=== PATIENT | male | born 1990 | race Caucasian/White ===

== ENCOUNTER 2020-10-14 10:32 | Inpatient (IN) | payer OTHER, SELFPAY ==
[2020-10-14] VITALS (12 sets, daily range): BP systolic 127–179; BP diastolic 63–122; PULSE 58–75; RESP 12–18; TEMP 36.2–37; O2SAT 97–100; BMI 27.3; BMI 27.6
--- NOTE | 2020-10-14 | ECG_ITS ---
Test Reason : CHEST PAIN Blood Pressure : / mmHG Vent. Rate : 056 BPM Atrial Rate : 056 BPM P-R Int : 146 ms QRS Dur : 094 ms QT Int : 418 ms P-R-T Axes : 057 039 043 degrees QTc Int : 403 ms Sinus bradycardia with sinus arrhythmia Otherwise normal ECG No previous ECGs available Referred By: Generic ED Physician Electronically Signed By:LORI HAWK
--- NOTE | ~2020-10-14 | XR_ITS ---
EXAMINATION: XR CHEST CLINICAL INFORMATION: Chest pain COMPARISON: None TECHNIQUE: Frontal view of the chest was obtained. FINDINGS: No significant abnormality is noted involving the heart, lungs, mediastinum, bony thorax or soft tissues. XR/XR chest 1V IMPRESSION: Unremarkable chest examination.
--- NOTE | 2020-10-14 11:40 | ED.CHESTPAIN ---
HPI - Chest Pain General Chief Complaint: Chest Pain Stated Complaint: CHEST PAIN Time Seen by Provider: 10/14/20 11:38 History of Present Illness HPI narrative: Positive chest pain mid chest on the left side as well. Radiating to the arm. It was dull. Lasted for about an hour. There was no specific trigger. No fever no chills. No history of diabetes, hypertension, high cholesterol. Patient vapes. No history of DE. No family history of DE. Patient denies any recent travel history no history of blood clots. Not on blood thinners. No history of similar pain in the past. No shortness of breath. No diaphoresis associated with this. Patient is from home. Related Data Allergies Allergy/AdvReac Type Severity Reaction Status Date / Time aspirin Allergy Swelling Verified 10/14/20 10:43 Review of Systems Review of Systems: Constitutional: No Weight loss, No Fever, No Chills, No Night Sweats, No Fatigue, No Malaise ENT/Mouth: No Hearing loss, No Ear Pain, No Nasal Congestion, No Sinus Pain, No Hoarseness, No sore throat, No Rhinorrhea, No Swallowing Difficulty Eyes: No Eye Pain, No Swelling, No Redness, No Foreign Body, No Discharge, No Vision Changes Cardiovascular: Positive chest pain no shortness of breath no diaphoresis Respiratory: No Cough, No Sputum, No Wheezing, No Smoke Exposure, No Dyspnea Gastrointestinal: No Nausea, No Vomiting, No Diarrhea, No Constipation, No abdominal Pain, No Hematochezia, No Melena Genitourinary: no irregular bleeding, No Dysuria, No Urinary Frequency, No Hematuria, No Urinary Incontinence, No Urgency, No Flank Pain, No Urinary Flow Changes, No Hesitancy Musculoskeletal: No joint pain, No Myalgias, No Joint Swelling Skin: No Skin Lesions, No rash Neuro: No Weakness, No Numbness, No Paresthesias, No Loss of Consciousness, No Dizziness, No Headache Psych: No Anxiety/Panic, No Depression, No SI/HI/AH/VH, No Social Issues, Heme/Lymph: No Bruising, No Bleeding,No Lymphadenopathy Endocrine: No Polyuria, No Polydipsia, No Temperature Intolerance PMFSH Past Medical History Medical History Anxiety Depression Social History Social History Alcohol intake: current Alcohol intake frequency: a few times a week Smoked in Last 30 Days: Yes Use of substances other than those prescribed or required for medical reasons: No Advance Directives: Yes Advance Directives Information Provided: Yes Advance Directives on File: No Physical Exam Vital Signs: Vital Signs: Last Vital Signs Temp 97.1 F 10/14/20 10:40 Pulse 64 10/14/20 13:17 Resp 16 10/14/20 13:17 BP 143/95 H 10/14/20 13:17 Pulse Ox 99 10/14/20 13:17 Body Mass Index 27.3 Appearance: Alert. Oriented X3. No acute distress. Eyes: Pupils equal, round and reactive to light. ENT: Pharynx normal. Neck: Normal inspection. Neck supple. No lymph nodes noted. No crepitus CVS: Normal heart rate and rhythm. Pulses normal. Normal S1 and S2 Respiratory: No respiratory distress. Breath sounds normal. No Wheezing. No rales Abdomen: Soft and nontender. No rigidity. No distention. good BS x4 Skin: Skin warm and dry. Normal skin color. Normal skin turgor. Extremities: No lower extremity edema. Neurovascular intact to all extremities. No Lacerations. No Rash Neuro: Oriented X 3. No motor deficit. No sensory deficit. Moving all extermities. No slurred speech MDM - Chest Pain MDM Narrative Medical decision making narrative: Patient's EKG showed a sinus pattern heart rate was 60 NC cares QT within normal limits is no acute ST segment elevation noted. He is well-appearing the only risk factor being he vapes. Patient has no risk factors for PE as well. Chest x-ray is pending to rule out pneumonia pneumothorax. Will get 2 sets of cardiac enzyme is chest pain is less than 6 hours. Currently in stable condition Patient's cardiac enzyme in the 40s. A repeat EKG was done. It is essentially the same as previous. Heart rate was 60 sinus NC QRS QT within normal limits is no acute ST segment elevation noted. Patient's CRP minimally elevated at 0.6. Patient's CK is normal. Case discussed with cardiology. Wants patient to be admitted. Once an echo to be done. Case will be discussed with the hospitalist team for admission. Patient has no risk factors for PE. Chest x-ray showed no pneumonia no pneumothorax. Differential Diagnosis Differential diagnosis: Likely fracture of rib, pneumothorax, unstable angina pectoris, st elevation myocardial infarction, costochondritis and biliary colic Lab Data Attestation: I reviewed the patient's lab results. Result diagrams: 10/14/20 11:45 10/14/20 11:45 Labs: Lab Results 10/14/20 10/14/20 10/14/20 Range/Units 11:45 11:45 11:50 WBC 8.1 (4.8-10.8) X10*3/uL RBC 4.91 (4.60-5.80) X10*6/uL Hgb 15.0 (14.0-18.0) g/dl Hct 44.5 (42-52) % MCV 90.6 (80-98) fL MCH 30.5 (27.0-33.0) pg MCHC 33.7 (31.0-36.0) g/dl RDW 11.8 (11.0-16.0) % Plt Count 315 (160-400) X10*3/uL MPV 9.6 (9.4-12.4) fL Immature Gran % (Auto) 1.7 H (0.0-0.4) % Neut % (Auto) 65.2 (45-73) % Lymph % (Auto) 24.2 (20-40) % [place] % (Auto) 7.8 (2-11) % Eos % (Auto) 0.5 (0-4) % Baso % (Auto) 0.6 (0-2) % Lymph # (Auto) 2.0 (1.2-4.9) X10*3/uL [place] # (Auto) 0.6 (0.1-1.2) X10*3/uL Eos # (Auto) 0.0 (0.0-0.4) X10*3/uL Baso # (Auto) 0.1 (0.0-0.2) X10*3/uL Abs Immat Gran (auto) 0.14 H (0.00-0.03) X10*3/uL Absolute Neuts (auto) 5.3 (2.0-8.3) X10*3/uL Absolute Nucleated RBC 0.000 (0.0-0.012) X10*3/uL Nucleated RBC % (auto) 0.0 (0.0-0.2) /100WBC Sodium 138 (135-145) mmol/L Potassium 4.8 (3.3-5.1) mmol/L Chloride 103 (96-108) mmol/L Carbon Dioxide 28 (22-29) mmol/L Anion Gap 12 (12-20) BUN 16 (9-16) mg/dL Creatinine 1.17 (0.5-1.4) mg/dL Estim Creat Clear Calc 90.1 Estimated GFR > 60 Random Glucose 99 (60-115) mg/dL Calcium 10.0 (8.4-10.2) mg/dL Total Creatine Kinase 125 (38-174) U/L Troponin I High Sens 46.1 H* (<3.5-35.0) ng/L C-Reactive Protein 0.70 H (< or = 0.50) mg/dL Discharge Plan Discharge Clinical Impression: Chest pain Patient Disposition: Admitted As Inpatient
[2020-10-14 11:52] LABS: MANUAL DIFF FLAG NO
[2020-10-14 11:55] LABS: Basophils Absolute Auto 0.1 X10*3/uL (0.0-0.2); Basophils Percent Auto 0.6 % (0-2); Eosinophils Percent Auto 0.5 % (0-4); Hematocrit 44.5 % (42-52); Imm Gran Abs Auto 0.14 X10*3/uL (0.00-0.03); Imm Gran Pct Auto 1.7 % (0.0-0.4); Lymphocytes Percent Auto 24.2 % (20-40); Mean Corpuscular HGB Conc 33.7 g/dl (31.0-36.0); Mean Corpuscular Hemoglobin 30.5 pg (27.0-33.0); Mean Corpuscular Volume 90.6 fL (80-98); Mean Platelet Volume 9.6 fL (9.4-12.4); Monocytes Absolute Auto 0.6 X10*3/uL (0.1-1.2); Monocytes Percent Auto 7.8 % (2-11); Neutrophils Absolute Auto 5.3 X10*3/uL (2.0-8.3); Neutrophils Percent Auto 65.2 % (45-73); Platelet Count 315 X10*3/uL (160-400); Red Blood Count 4.91 X10*6/uL (4.60-5.80); Red Cell Distribution Width 11.8 % (11.0-16.0); White Blood Count 8.1 X10*3/uL (4.8-10.8)
--- NOTE | 2020-10-14 12:08 | PC.NURSE ---
Pt sitting up in bed looking around in no distress. pt states chest pain is still present and rates it a 2/10. Pt continues to be nervous and anxious. Pt ambulatory to the bathroom and back in without difficutly
[2020-10-14 12:18] LABS: Anion Gap 12 (12-20); Blood Urea Nitrogen 16 mg/dL (9-16); Carbon Dioxide 28 mmol/L (22-29); Chloride 103 mmol/L (96-108); Creatinine Clr Calc Pharmacy 90.1; Estimated Glomerular Filt Rate > 60; Glucose Random 99 mg/dL (60-115); Potassium 4.8 mmol/L (3.3-5.1); Sodium 138 mmol/L (135-145)
[2020-10-14 12:44] LABS: Troponin-I High Sensitivity 46.1 ng/L (<3.5-35.0)
--- NOTE | 2020-10-14 13:27 | ECG_ITS ---
Test Reason : REPEAT EKG Blood Pressure : / mmHG Vent. Rate : 061 BPM Atrial Rate : 061 BPM P-R Int : 144 ms QRS Dur : 088 ms QT Int : 402 ms P-R-T Axes : 062 059 063 degrees QTc Int : 404 ms Normal sinus rhythm with sinus arrhythmia Normal ECG When compared with ECG of 14-OCT-2020 10:57, No significant change was found Referred By: Elisa Perry Electronically Signed By:LORI HAWK
--- NOTE | 2020-10-14 14:00 | CA_ITS ---
Transthoracic Echocardiogram Patient (Last, First, Middle): RENE GARRIDO, Gender: Male Date of : 1990 Age: 30 Procedure Date: 10/14/2020 Procedure Type: Transthoracic Echocardiogram Location: ER Height: 172.72 cm Weight: 81.65 kg BSA: 1.95 m2 Heart Rate: bpm BP: 137 / 86 mmHg Wired Sweatband Cutter: Referring MD: Donaldo Obrien MD Symptoms: Elevated troponins Study Quality: Fair ECG Rhythm: Sinus Conclusions: - The left ventricular systolic function is normal. The visually estimated ejection fraction is between 60-65%. - The apex, apical anterior, apical inferior, and apical septum segments are hypokinetic. - No obvious valvular pathology seen on this study. - There is mild dilatation of the ascending aorta measuring 3.50 cm. Findings Procedure Information Contrast agent, definity, is being given per protocol without apparent complications. Left Ventricle Normal left ventricular cavity size. There is mildly increased left ventricular wall thickness. The left ventricular systolic function is normal. The visually estimated ejection fraction is between 60-65%. There is no evidence of regional wall motion abnormalities. Diastolic function is normal for age. Wall Motion Rest Echo Findings The apex, apical anterior, apical inferior, and apical septum segments are hypokinetic. Right Ventricle Normal right ventricular cavity size and systolic function. Atria Both atria are normal in size. Aortic Valve There is a normal trileaflet aortic valve. There is no aortic valve stenosis. There is no aortic valve regurgitation. Mitral Valve The mitral valve appears normal. There is trace mitral valve regurgitation. There is no mitral valve stenosis. Pulmonic Valve The pulmonic valve was not well visualized. Tricuspid Valve Normal tricuspid valve structure. There is trace tricuspid valve regurgitation. The pulmonary artery systolic pressure is normal. Great Vessels There is mild dilatation of the ascending aorta measuring 3.50 cm. Venous The inferior vena cava is normal in size and collapses greater than 50% with inspiration. Pericardium/Pleural There is no evidence of pericardial effusion. Prior Study Comparison No prior study available for comparison. Recommendations, Care & Conclusions No obvious valvular pathology seen on this study. Measurements 2D Linear Measurements IVSd: 1.15 0.6-0.9/0.6-1.0 cm LVIDd: 4.22 3.9-5.3/4.2-5.9 cm LVIDd Index: 2.16 2.4-3.2/2.2-3.1 cm/m2 LVIDs: 2.26 2.0-3.6 cm LVPWd: 1.05 0.7-1.1 cm Ao Root: 3.20 2.1-3.5 cm LA Diam: 3.20 2.7-3.8/3.0-4.0 cm LAIDs Index: 1.64 1.5-2.3 cm/m2 LV Mass: 197.04 67-162/88-224 g LV Mass Index: 101.04 43-95/49-115 g/m2 LVOT Diam: 2.20 3.0+(-)1.3 cm 2D Systolic Function EF 4C: 57.60 >55% EF 2C: 70.70 >55% EF BiP: 65.30 >55% Mitral Valve MV Pk E: 0.72 MV PK A: 0.47 MV Decel Time: 178.00 E/A: 1.50 E'Lateral: 15.70 E'Medial: 9.25 E/E' Med: 7.80 E/E' Lat: 4.60 PHT: 52.00 MVA PHT: 4.23 Decel [place]: 4.04 Aortic Valve AoV Pk Keegan: 1.01 AoV Mn Keegan: 0.64 AoV VTI: 0.23 AoV Pk Grad: 4.00 Aov Mn Grad: 2.00 MELVA Cont.VTI: 2.99 LVOT LVOT Pk Keegan: 0.81 LVOT Mn Keegan: 0.49 LVOT VTI: 0.18 LVOT Pk Grad: 3.00 LVOT Mn Grad: 1.00 LVOT Diam: 2.20 LVOT Area: 3.80 Diastolic Function MV Pk E: 0.72 MV Pk A: 0.47 E/A: 1.50 E'Medial: 9.25 E/E' Med: 7.80 E' Laterial: 15.70 E/E' Lat: 4.60 Right Ventricle TAPSE (mm): 2.04 Great Vessels Aorta Ao Root-2D: 3.20 2.0-3.7 cm Ao Asc: 3.50 2.1-3.4 cm Pulmonary Valve PV Pk Keegan: 0.97 Peak PV Grad: 4.00 Updated in Other Vendor System with Status of Final Donaldo Obrien MD electronically signed on 10/14/2020 4:19:38 PM with status of Final
[2020-10-14 14:52] LABS: COVID-19 Test Negative (Negative)
--- NOTE | 2020-10-14 15:11 | PHA.MEDREC ---
Pharmacy Consult ? Medication Reconciliation Pharmacy has completed the medication reconciliation.
[2020-10-14 15:27] LABS: Erythrocyte Sedimentation Rate 14 MM/HR (0-15)
[2020-10-14] MEDS: amLODIPine Besylate 2.5 MG TABLET PO (15:44)
[2020-10-14] MEDS: Clopidogrel Bisulfate 75 MG TABLET PO (15:46)
[2020-10-14] MEDS: Atorvastatin Calcium 80 MG TABLET PO (15:46)
[2020-10-14 16:15] LABS: INTERNATIONAL NORM RATIO 1.3 (0.9-1.1); Prothrombin Time 14.6 SEC (9.9-13.0)
[2020-10-14 16:17] LABS: PTT Heparin Drip 43.2 SEC (53-77.9)
--- NOTE | 2020-10-14 16:35 | PC.NURSE ---
Report given to IMCU nurse for room 485.
[2020-10-14] MEDS: Heparin Sodium,Porcine 5,000 UNIT/ML VIAL 4000 UNIT IVPUSH (16:57)
[2020-10-14] MEDS: Heparin Sodium,Porcine/1/2NS 25,000 UNIT/250 ML IV.SOLN 9.8 UNIT IVCONT (17:01)
[2020-10-14] MEDS: Clopidogrel Bisulfate 75 MG TABLET 225 MG PO (17:03)
--- NOTE | 2020-10-14 17:45 | PC.NURSE ---
Pt moved to room 485 via stretcher in no distress
--- NOTE | 2020-10-14 17:54 | HP_ITS ---
DATE OF SERVICE: 10/14/2020 CHIEF COMPLAINT: Chest pain. HISTORY OF PRESENT ILLNESS: This is a 30-year-old gentleman with past medical history significant for hypertension, previously was on antihypertensive medications, but that was subsequently discontinued since he was noted to have normal blood pressures. The patient today developed left precordial chest pain that was dull to sharp in intensity. He felt sweaty and had heavy breathing, symptoms started at 10 a.m. He also took some antacid medications since he fell symptoms related to heartburn, but he had no effect. Since symptoms persisted, he came to the emergency room. He denied any prior similar episodes of chest pain. He never had chest pain with exertion. He denies any stress. He has borderline high cholesterol. He vapes. In the emergency room, his EKG showed no acute ischemic changes. Troponin was 46.1, a repeat troponin is 474. The patient's chest pain resolved in the ER without any intervention. The patient has a history of tongue swelling as a child due to aspirin. The patient denies use of cocaine or other illicit drugs. His C-reactive protein is 0.70, ESR is 14. He is now being admitted to [facility] with diagnosis of [id number] MA. PAST MEDICAL HISTORY: Significant for hypertension, borderline high cholesterol. MEDICATIONS: He is not on any prescription drugs except for biotin 10,000 mcg daily. ALLERGIES: TO ASPIRIN THAT CAUSES TONGUE SWELLING. FAMILY HISTORY: There is no family history of premature coronary artery disease. Mother at bedside. Denies any family member to have coronary artery disease or diabetes. He is the only child. SOCIAL HISTORY: The patient drinks alcohol socially. 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 Denies illicit drug use. He does vaping. No use of marijuana. REVIEW OF SYSTEMS: REBEAMER: He denies headache, lightheadedness, or dizziness. CVS: His chest pain has now resolved. RESPIRATORY: He denies any recent bout of cough. No sputum production. GI: He denies any nausea or vomiting. No history of heartburn or acidity. : No urinary symptoms of urgency and frequency. LABORATORY DATA: Showed a WBC 8.1, hematocrit 44.5, and a platelet count of 315. Sodium 138, potassium 4.8, chloride 103, bicarb 28, creatinine 1.17. Troponin 46, bumped up to 474. PHYSICAL EXAMINATION: GENERAL: The patient is resting comfortably, in no acute distress. NECK: Supple. No JVD. LUNGS: Clear to auscultation bilaterally. No respiratory distress. HEART: Regular rate and rhythm. No murmur regurg or gallop. ABDOMEN: Soft, nontender. EXTREMITIES: No edema. NEUROLOGIC: Nonfocal. PSYCH: Appropriate affect. IMAGING STUDY: Chest x-ray showed no acute cardiopulmonary pathology. EKG showed sinus bradycardia with sinus arrhythmia, otherwise no acute ischemic changes. ASSESSMENT AND PLAN: 30-year-old gentleman with past medical history of hypertension and borderline high cholesterol, who presented to [facility] with 1 hour of [id number] pain that started while he was walking. Pain came on suddenly, associated with sweating and heavy breathing, symptoms resolved on its own within an hour, the ER workup showed elevated troponin, EKG with no acute ischemic changes, not suggestive of pericarditis. 1. Chest pain, likely [id number] elevation myocardial infarction. The patient will be admitted to intermediate care unit, will be treated with IV heparin, Plavix, Lipitor. We will avoid aspirin with history of tongue swelling as a child. Due to sinus bradycardia, we will hold off on beta-blockers. We will follow blood pressure closely. Check lipid profile. Obtain echocardiogram and Cardiology consultation. Drug toxicology screen has been sent. We will follow the report. Case discussed with the patient and his mother at bedside, informed them about the plan of treatment and they are agreeable to current treatment. MD YECENIA Manning/ELIUD / [phone]
[2020-10-14 18:22] LABS: Amphetamine Screen Urine Not Detected (Not Detect); Barbiturates, Urine Not Detected (Not Detect); Benzodiazepines Screen Urine Not Detected (Not Detect); Cannabinoid Screen Urine Not Detected (Not Detect); Cocaine Screen Urine Not Detected (Not Detect); Opiate Screen Urine Not Detected (Not Detect); Phencyclidine Screen Urine Not Detected (Not Detect)
[2020-10-14] MEDS: Nitroglycerin 2 % Oint 1 GM Packet 0.5 INCH TRANSDERMA (20:12)
[2020-10-14 23:28] LABS: PTT Heparin Drip 92.8 SEC (53-77.9)
--- NOTE | 2020-10-15 | ECG_ITS ---
Test Reason : NSTEMI Blood Pressure : / mmHG Vent. Rate : 054 BPM Atrial Rate : 054 BPM P-R Int : 152 ms QRS Dur : 090 ms QT Int : 452 ms P-R-T Axes : 049 056 084 degrees QTc Int : 428 ms Sinus bradycardia T wave abnormality, consider anterolateral ischemia Abnormal ECG When compared with ECG of 14-OCT-2020 13:36, T wave inversion more evident in Anterior leads Referred By: Lori Hawk Electronically Signed By:LORI HAWK
[2020-10-15 03:17] VITALS: BP 115/51; PULSE 63; RESP 18; TEMP 36.9; O2SAT 98
[2020-10-15] MEDS: Acetaminophen 325 MG TABLET 650 MG PO ×2 (06:16→12:07)
[2020-10-15 06:38] LABS: Hematocrit 44.3 % (42-52); Hemoglobin 14.8 g/dl (14.0-18.0); Mean Corpuscular HGB Conc 33.4 g/dl (31.0-36.0); Mean Corpuscular Hemoglobin 30.6 pg (27.0-33.0); Mean Corpuscular Volume 91.5 fL (80-98); Mean Platelet Volume 9.9 fL (9.4-12.4); Platelet Count 332 X10*3/uL (160-400); Red Blood Count 4.84 X10*6/uL (4.60-5.80); Red Cell Distribution Width 12.1 % (11.0-16.0); White Blood Count 10.1 X10*3/uL (4.8-10.8)
[2020-10-15 06:44] LABS: INTERNATIONAL NORM RATIO 1.3 (0.9-1.1); Prothrombin Time 14.7 SEC (9.9-13.0)
[2020-10-15 06:47] LABS: PTT Heparin Drip 62.7 SEC (53-77.9)
[2020-10-15 07:07] LABS: Cholesterol 181 mg/dL; HDL Cholesterol 33 mg/dL; LDL Cholesterol Calculated 106 mg/dl; Triglycerides 212 mg/dL
[2020-10-15 07:20] VITALS: BP 114/64; PULSE 72; RESP 16; TEMP 36.1; O2SAT 97
--- NOTE | 2020-10-15 09:05 | MHC.CM.PN ---
Male 30 DX NSTEMI He is independent. [facility] TRANSF[facility] to [facility] for Cardiac [place]. Pt will transport via ALS.
[2020-10-15 09:10] VITALS: BP 114/64; PULSE 72
[2020-10-15] MEDS: Nitroglycerin 2 % Oint 1 GM Packet 0.5 INCH TRANSDERMA (09:10)
[2020-10-15] MEDS: 0.9 % Sodium Chloride Flush 3 ML SYRINGE IVFLUSH (09:10)
[2020-10-15] MEDS: Atorvastatin Calcium 80 MG TABLET PO (09:10)
--- NOTE | 2020-10-15 09:55 | MHC.CM.PN ---
HCP documented placed on chart. Copy with tx packet and copies to Pt.
--- NOTE | 2020-10-15 10:24 | PM.CNCAR ---
History of Present Illness History of Present Illness Date of Service: 10/15/20 Consult reason: myocardial infarction Chief complaint: CHEST PAIN Narrative: This is a cardiology consultation regarding elevated troponins and chest pain. Patient does not have any known cardiac problems. He states that he was his usual state of health yesterday when all of a sudden developed left-sided chest discomfort that felt like a pressure. Also to discomfort in the left forearm as well. This happens today morning last for about 20-30 minutes. Then resolved by itself. He came to the ER an EKG was unremarkable but elevated troponins were noted in the he was admitted. He states that he was smoking scattered still a few months ago but now does weeping only. Otherwise no known cardiac issues in the past. He has a history of hypertension states he was on medications but then they were stopped as the blood pressure is within the normal range. Otherwise quite active without any major limitations on a daily basis. Father has hypertension. No premature CAD in near family. Extended family-great grandmother on maternal side has had cardiac issues. Review of Systems Review of Systems: Yes all other systems are reviewed and are negative Cardiovascular: Cardiovascular: Reports as per HPI, Reports no additional cardiovascular complaints, Denies acrocyanosis, Denies cool extremities, Denies painful fingertips, Reports chest pain, Reports chest pain at rest, Denies diaphoresis, Denies syncope, Denies irregular heart rhythm, Denies claudication, Denies leg edema, Denies lightheadedness, Denies palpitations and Denies dyspnea Respiratory: Respiratory: Denies dyspnea Neurologic: Denies syncope Endocrine: Endocrine: Denies palpitations PMF Past Medical History Medical History (Updated 10/15/20 @ 10:28 by Donaldo Obrien MD) Anxiety Aspirin allergy Depression Family History Pertinent family history: Father - hypertension Great grandmother on maternal with cardiac issues; CAD Social History Social History Household Members: Other Household Members Other:: Roommate Housing: Apartment Do you presently have visiting nurse or other home services: No Alcohol intake: current Alcohol intake frequency: a few times a week Patient Tobacco Use Status: Current everyday Tobacco user Years Smoked: 5 Smoked in Last 30 Days: Yes e-Cigarette/Vaping Use: Currently Using Frequency of e-Cigarette/Vaping Use: Daily Patient Interested in Nicotine Replacement: No Patient Given Instructions on How to Stop Smoking: Yes Date Education Initiated: 10/14/20 Second Hand Smoke Exposure: Yes Use of substances other than those prescribed or required for medical reasons: No Currently Displaying Signs/Symptoms of Drug Intoxication Withdrawal: No Have you been hit, kicked, punched, or otherwise hurt by someone within the past year? If so, by whom?: No Do you feel safe in your current relationship?: Yes Is there a partner from a previous relationship who is making you feel unsafe now?: No Are you made to feel afraid or neglected: No Spiritual Healthcare Practices: none per patient [facility] Practices: none per patient Cultural Healthcare Practices: none per patient Advance Directives: Yes Advance Directives Information Provided: Yes Advance Directives on File: No Advance Directives Date on File: 10/14/20 Do you have thoughts of harming others: None Do you have a plan to hurt others: No Plan Recently lost weight without trying: No Eating poorly because of decreased appetite: No Nutrition Risks: No Nutritional Risk Poor oral hygiene: No service: No Current occupational status: employed Meds Allergies Allergy/AdvReac Type Severity Reaction Status Date / Time aspirin Allergy Swelling Verified 10/14/20 10:43 Active Medications: Current Medications Generic Name Dose Route Start Last Admin Trade Name Freq PRN Reason Stop Dose Admin Acetaminophen 650 mg 10/14/20 15:22 10/15/20 06:16 Acetaminophen 325 Mg Tablet PO 650 mg Q6H PRN Administration Pain, Mild (Pain Scale 1-3) Atorvastatin Calcium 80 mg 10/14/20 15:30 10/15/20 09:10 Atorvastatin Calcium 80 Mg Tablet PO 80 mg DAILY ANDREW Administration Heparin Sodium (Porcine) 3,300 unit 10/14/20 15:28 Heparin Sodium,Porcine 5,000 Unit/Ml Vial 40 unit/kg (3300 unit) IVPUSH PROTOCOL BOLUS PRN 40 unit/kg - Heparin Protocol Protocol Heparin Sodium (Porcine) 6,500 unit 10/14/20 15:28 Heparin Sodium,Porcine 5,000 Unit/Ml Vial 80 unit/kg (6500 unit) IVPUSH PROTOCOL BOLUS PRN 80 unit/kg - Heparin Protocol Protocol Heparin Sodium/Sodium Chloride 25,000 unit in 250 mls @ 0 mls/hr 10/14/20 15:40 10/14/20 23:41 IVCONT 10 units/kg/hr .Q0M ANDREW 8.17 mls/hr Titration Protocol Per Protocol Magnesium Hydroxide 30 ml 10/14/20 15:22 Milk Of Magnesia 30 Ml Oral.Susp PO DAILY PRN Constipation Nitroglycerin 0.4 mg 10/14/20 15:59 Nitroglycerin 0.4 Mg Tab.Subl SUBLINGUAL Q5MX3 PRN Chest Pain Nitroglycerin 0.5 inch 10/14/20 20:00 10/15/20 09:10 Nitroglycerin 2 % Oint 1 Gm Packet TRANSDERMA 0.5 inch RQ6H WHILE AWAKE ANDREW Administration Ondansetron HCl 4 mg 10/14/20 15:22 Ondansetron Hcl 4 Mg/2 Ml Vial IVPUSH Q8H PRN Nausea and Vomiting Pharmacy Consult 1 each 10/14/20 13:50 Consult Rx Perform Med Rec MISCELLANE ONCE PRN Consult order Sodium Chloride 3 ml 10/14/20 16:00 10/15/20 09:10 0.9 % Sodium Chloride Flush 3 Ml Syringe IVFLUSH 3 ml QSHIFT [facility] Administration Home Medications Medication Instructions Recorded Confirmed Last Taken Type biotin 10,000 mcg capsule 10,000 mcg PO DAILY 10/14/20 10/14/20 10/13/20 History Physical Exam Vital Signs: Vital Signs: Last Vital Signs Temp 97 F 10/15/20 07:20 Pulse 72 10/15/20 09:10 Resp 16 10/15/20 07:20 BP 114/64 10/15/20 09:10 Pulse Ox 97 10/15/20 07:20 Body Mass Index 27.6 Const: General: cooperative and no acute distress HENMT: Other: Unremarkable Neck: Neck: Yes normal visual inspection Chest: Chest palpation & inspection: normal inspection of the chest Resp: Auscultation: clear to auscultation bilaterally, no crackles and no wheezes Cardio: Jugular venous distension: no JVD Palpation: normal PMI Heart sounds: S1 normal heart sound present, S2 normal heart sound present, no gallops, no murmurs and no rubs GI: Palpation (GI): Soft to palpation Back/Spine/Pelvis: Other: unremarkable Skin: General skin exam: no rashes or lesions noted Neuro: Cranial nerves: Yes Other cranial nerve findings present Extrem: General: Yes no clubbing, cyanosis or edema Psych: Mental Status: other Results Labs and Meds Result diagrams: 10/15/20 05:35 10/14/20 11:45 Lab results: Laboratory Results - last 24 hr 10/14/20 10/14/20 10/14/20 11:45 11:45 11:50 WBC 8.1 RBC 4.91 Hgb 15.0 Hct 44.5 MCV 90.6 MCH 30.5 MCHC 33.7 RDW 11.8 Plt Count 315 MPV 9.6 Immature Gran % (Auto) 1.7 H Neut % (Auto) 65.2 Lymph % (Auto) 24.2 Randall % (Auto) 7.8 Eos % (Auto) 0.5 Baso % (Auto) 0.6 Lymph # (Auto) 2.0 Randall # (Auto) 0.6 Eos # (Auto) 0.0 Baso # (Auto) 0.1 Abs Immat Gran (auto) 0.14 H Absolute Neuts (auto) 5.3 Absolute Nucleated RBC 0.000 Nucleated RBC % (auto) 0.0 ESR PT INR PTT (Heparin Protocol) Sodium 138 Potassium 4.8 Chloride 103 Carbon Dioxide 28 Anion Gap 12 BUN 16 Creatinine 1.17 Estim Creat Clear Calc 90.1 Estimated GFR > 60 Random Glucose 99 Calcium 10.0 Total Creatine Kinase 125 Troponin I High Sens 46.1 H* C-Reactive Protein 0.70 H Triglycerides Cholesterol LDL Cholesterol, Calc HDL Cholesterol Urine Opiates Screen Ur Barbiturates Screen Ur Phencyclidine Scrn Ur Amphetamines Screen U Benzodiazepines Scrn Urine Cocaine Screen U Marijuana (THC) Screen COVID-19 (PHILIP) COVID-19 Clin Com 10/14/20 10/14/20 10/14/20 14:29 14:29 14:29 WBC RBC Hgb Hct MCV MCH MCHC RDW Plt Count MPV Immature Gran % (Auto) Neut % (Auto) Lymph % (Auto) Randall % (Auto) Eos % (Auto) Baso % (Auto) Lymph # (Auto) Randall # (Auto) Eos # (Auto) Baso # (Auto) Abs Immat Gran (auto) Absolute Neuts (auto) Absolute Nucleated RBC Nucleated RBC % (auto) ESR 14 PT INR PTT (Heparin Protocol) Sodium Potassium Chloride Carbon Dioxide Anion Gap BUN Creatinine Estim Creat Clear Calc Estimated GFR Random Glucose Calcium Total Creatine Kinase Troponin I High Sens 474.0 H* D C-Reactive Protein Triglycerides Cholesterol LDL Cholesterol, Calc HDL Cholesterol Urine Opiates Screen Ur Barbiturates Screen Ur Phencyclidine Scrn Ur Amphetamines Screen U Benzodiazepines Scrn Urine Cocaine Screen U Marijuana (THC) Screen COVID-19 (PHILIP) Negative COVID-19 Clin Com See Note 10/14/20 10/14/20 10/14/20 15:56 17:47 23:06 WBC RBC Hgb Hct MCV MCH MCHC RDW Plt Count MPV Immature Gran % (Auto) Neut % (Auto) Lymph % (Auto) Randall % (Auto) Eos % (Auto) Baso % (Auto) Lymph # (Auto) Randall # (Auto) Eos # (Auto) Baso # (Auto) Abs Immat Gran (auto) Absolute Neuts (auto) Absolute Nucleated RBC Nucleated RBC % (auto) ESR PT 14.6 H INR 1.3 H PTT (Heparin Protocol) 43.2 L 92.8 H D Sodium Potassium Chloride Carbon Dioxide Anion Gap BUN Creatinine Estim Creat Clear Calc Estimated GFR Random Glucose Calcium Total Creatine Kinase Troponin I High Sens C-Reactive Protein Triglycerides Cholesterol LDL Cholesterol, Calc HDL Cholesterol Urine Opiates Screen Not Detected Ur Barbiturates Screen Not Detected Ur Phencyclidine Scrn Not Detected Ur Amphetamines Screen Not Detected U Benzodiazepines Scrn Not Detected Urine Cocaine Screen Not Detected U Marijuana (THC) Screen Not Detected COVID-19 (PHILIP) COVID-19 [facility] Com 10/15/20 10/15/20 10/15/20 05:35 05:35 05:35 WBC 10.1 RBC 4.84 Hgb 14.8 Hct 44.3 MCV 91.5 MCH 30.6 MCHC 33.4 RDW 12.1 Plt Count 332 MPV 9.9 Immature Gran % (Auto) Neut % (Auto) Lymph % (Auto) Randall % (Auto) Eos % (Auto) Baso % (Auto) Lymph # (Auto) Randall # (Auto) Eos # (Auto) Baso # (Auto) Abs Immat Gran (auto) Absolute Neuts (auto) Absolute Nucleated RBC 0.000 Nucleated RBC % (auto) 0.0 ESR PT 14.7 H INR 1.3 H PTT (Heparin Protocol) Sodium Potassium Chloride Carbon Dioxide Anion Gap BUN Creatinine Estim Creat Clear Calc Estimated GFR Random Glucose Calcium Total Creatine Kinase Troponin I High Sens C-Reactive Protein Triglycerides 212 Cholesterol 181 LDL Cholesterol, Calc 106 HDL Cholesterol 33 Urine Opiates Screen Ur Barbiturates Screen Ur Phencyclidine Scrn Ur Amphetamines Screen U Benzodiazepines Scrn Urine Cocaine Screen U Marijuana (THC) Screen COVID-19 (PHILIP) COVID-19 [facility] Com 10/15/20 05:35 WBC RBC Hgb Hct MCV MCH MCHC RDW Plt Count MPV Immature Gran % (Auto) Neut % (Auto) Lymph % (Auto) Randall % (Auto) Eos % (Auto) Baso % (Auto) Lymph # (Auto) Randall # (Auto) Eos # (Auto) Baso # (Auto) Abs Immat Gran (auto) Absolute Neuts (auto) Absolute Nucleated RBC Nucleated RBC % (auto) ESR PT INR PTT (Heparin Protocol) 62.7 D Sodium Potassium Chloride Carbon Dioxide Anion Gap BUN Creatinine Estim Creat Clear Calc Estimated GFR Random Glucose Calcium Total Creatine Kinase Troponin I High Sens C-Reactive Protein Triglycerides Cholesterol LDL Cholesterol, Calc HDL Cholesterol Urine Opiates Screen Ur Barbiturates Screen Ur Phencyclidine Scrn Ur Amphetamines Screen U Benzodiazepines Scrn Urine Cocaine Screen U Marijuana (THC) Screen COVID-19 (PHILIP) COVID-19 Clin Com ECG Interpretation: Initial EKG was unremarkable but repeat EKG today shows biphasic T-waves/inversion in anterior leads suggesting LAD ischemia. Imaging Radiologist's impression: Impressions Chest X-Ray 10/14/20 11:39 IMPRESSION: Unremarkable chest examination. Assessment and Plan (1) NSTEMI (non-ST elevated myocardial infarction): Status: Acute (2) Aspirin allergy: Status: Acute Symptoms of chest pain and left arm discomfort, abnormal EKG, elevated troponins suggest non ST elevation myocardial infarction. Initial troponin was 46. Repeat is 474-high sensitivity troponins. Today's set is pending. Echocardiogram also shows wall motion abnormality in the LAD territory. We will need to treat this as NSTEMI. Continue IV heparin drip. He was given Plavix as he is allergic to aspirin. The actual allergy was tongue swelling when he was 6 years old. Continue statins. Nitro patch. Plan for cardiac catheterization today. If he actually needs any intervention, then will need aspirin desensitization to be performed as well. Discussed with mother at the bedside in detail. Procedures Date of Service Date of Service: 10/15/20
[2020-10-15 10:29] LABS: Troponin-I High Sensitivity 1105.8 ng/L (<3.5-35.0)
[2020-10-15] MEDS: Clopidogrel Bisulfate 75 MG TABLET PO (11:04)
[2020-10-15 11:08] VITALS: BP 120/81; PULSE 60; RESP 18; TEMP 36.3; O2SAT 100
--- NOTE | 2020-10-15 11:14 | PM.DS ---
DS: Providers Provider Date of Service: 10/15/20 Date of admission: 10/14/20 15:22 Primary care physician: Unknown Physician Consults: 10/14/20 15:27 Consult to Cardiology Routine Consulting Provider: Donaldo Obrien Reason for consultation: nstemi Has provider been notified: Yes DS: Diagnosis Discharge Diagnosis (1) NSTEMI (non-ST elevated myocardial infarction): Status: Acute (2) Aspirin allergy: Status: Acute DS: Medications Discharge Medications Home Medications: Previous Rx's Medication Instructions Recorded acetaminophen 325 mg tablet 650 mg PO Q6H PRN #30 tab 10/15/20 atorvastatin 80 mg tablet 80 mg PO DAILY #30 tab 10/15/20 heparin (porcine) 25,000 unit/250 25,000 unit CONTINUOUS IV INFUSION 10/15/20 mL in 0.45 % sodium chloride IV .Q0M #1 ml soln heparin (porcine) 5,000 unit/mL 3,300 unit IVPUSH PROTOCOL BOLUS 10/15/20 injection solution PRN #1 ml heparin (porcine) 5,000 unit/mL 6,500 unit IVPUSH PROTOCOL BOLUS 10/15/20 injection solution PRN #1 ml magnesium hydroxide 400 mg/5 mL 30 ml PO DAILY PRN #30 ml 10/15/20 oral suspension (Milk of Magnesia) nitroglycerin 0.4 mg sublingual 0.4 mg SUBLINGUAL Q5MX3 PRN #30 tab 10/15/20 tablet (Nitrostat) nitroglycerin 2 % transdermal 0.5 inch TRANSDERMAL RQ6H WHILE 10/15/20 ointment (Nitro-Bid) AWAKE #1 g ondansetron HCl (PF) 4 mg/2 mL 4 mg IVPUSH Q8H PRN #3 ml 10/15/20 injection solution DS: Summary Hospital Course Hospital Course: History of presenting illness 30-year-old gentleman with past medical history significant for hypertension, previously was on antihypertensive medications, but that was subsequently discontinued since he was noted to have normal blood pressures. The patient today developed left precordial chest pain that was dull to sharp in intensity.? He felt sweaty and had heavy breathing, symptoms started at 10 a.m.? He also took some antacid medications since he fell symptoms related to heartburn, but he had no effect.? Since symptoms persisted, he came to the emergency room.? He denied any prior similar episodes of chest pain.? He never had chest pain with exertion.? He denies any stress.? He has borderline high cholesterol.? He vapes.? In the emergency room, his EKG showed no acute ischemic changes.? Troponin was 46.1, a repeat troponin is 474.? The patient's chest pain resolved in the ER without any intervention.? The patient has a history of tongue swelling as a child due to aspirin.? The patient denies use of cocaine or other illicit drugs.? His C-reactive protein is 0.70, ESR is 14. He is now being admitted to [facility] with diagnosis of [id number] [place]. ? PAST MEDICAL HISTORY:? Significant for hypertension, borderline high cholesterol. ? Hospital course 30-year-old gentleman with past medical history of hypertension and borderline high cholesterol presented with left anterior chest wall pain with radiation to left arm EKG showed no acute ischemic changes however noted to have elevated troponin patient diagnosed to have non ST elevation ND echocardiogram showed wall motion abnormality in the LAD territory patient was treated with IV heparin, Plavix due to aspirin allergy is statins and nitrates patient became chest pain free without any treatment in the emergency room, and during hospitalization did not have any recurrent chest discomfort ,patient is now being discharged to [facility] for cardiac catheterization drug toxicology screen was negative, tele monitor showed no arrhythmia, clinical examination shows no evidence of heart failure. Time Spent with Patient Time attestation: Total time spent providing and/or coordinating discharge services: Discharge coordination time: Greater than 30 minutes Quality: Stroke Does the patient have a stroke diagnosis?: No Physical Exam Vital Signs: Vital Signs: Last Vital Signs Temp 97.4 F 10/15/20 11:08 Pulse 60 10/15/20 11:08 Resp 18 10/15/20 11:08 BP 120/81 10/15/20 11:08 Pulse Ox 100 10/15/20 11:08 Body Mass Index 27.6 General patient resting comfortably in no acute distress. Neck no JVD. CVS regular rate rhythm, Respiratory lungs clear to auscultation, no respiratory distress, no wheeze, no rhonchi. Gastrointestinal abdomen soft, nontender, bowel sounds audible, no guarding , no rigidity. Extremities no clubbing cyanosis or edema. Neuro nonfocal Skin no rash DS: Data Data Completed and Pending Labs on day of discharge: Laboratory Results - last 24 hr 10/14/20 10/14/20 10/14/20 11:45 11:45 11:50 WBC 8.1 RBC 4.91 Hgb 15.0 Hct 44.5 MCV 90.6 MCH 30.5 MCHC 33.7 RDW 11.8 Plt Count 315 MPV 9.6 Immature Gran % (Auto) 1.7 H Neut % (Auto) 65.2 Lymph % (Auto) 24.2 [place] % (Auto) 7.8 Eos % (Auto) 0.5 Baso % (Auto) 0.6 Lymph # (Auto) 2.0 [place] # (Auto) 0.6 Eos # (Auto) 0.0 Baso # (Auto) 0.1 Abs Immat Gran (auto) 0.14 H Absolute Neuts (auto) 5.3 Absolute Nucleated RBC 0.000 Nucleated RBC % (auto) 0.0 ESR PT INR PTT (Heparin Protocol) Sodium 138 Potassium 4.8 Chloride 103 Carbon Dioxide 28 Anion Gap 12 BUN 16 Creatinine 1.17 Estim Creat Clear Calc 90.1 Estimated GFR > 60 Random Glucose 99 Calcium 10.0 Total Creatine Kinase 125 Troponin I High Sens 46.1 H* C-Reactive Protein 0.70 H Triglycerides Cholesterol LDL Cholesterol, Calc HDL Cholesterol Urine Opiates Screen Ur Barbiturates Screen Ur Phencyclidine Scrn Ur Amphetamines Screen U Benzodiazepines Scrn Urine Cocaine Screen U Marijuana (THC) Screen COVID-19 (PHILIP) COVID-19 [facility] Com 10/14/20 10/14/20 10/14/20 14:29 14:29 14:29 WBC RBC Hgb Hct MCV MCH MCHC RDW Plt Count MPV Immature Gran % (Auto) Neut % (Auto) Lymph % (Auto) [place] % (Auto) Eos % (Auto) Baso % (Auto) Lymph # (Auto) [place] # (Auto) Eos # (Auto) Baso # (Auto) Abs Immat Gran (auto) Absolute Neuts (auto) Absolute Nucleated RBC Nucleated RBC % (auto) ESR 14 PT INR PTT (Heparin Protocol) Sodium Potassium Chloride Carbon Dioxide Anion Gap BUN Creatinine Estim Creat Clear Calc Estimated GFR Random Glucose Calcium Total Creatine Kinase Troponin I High Sens 474.0 H* D C-Reactive Protein Triglycerides Cholesterol LDL Cholesterol, Calc HDL Cholesterol Urine Opiates Screen Ur Barbiturates Screen Ur Phencyclidine Scrn Ur Amphetamines Screen U Benzodiazepines Scrn Urine Cocaine Screen U Marijuana (THC) Screen COVID-19 (PHILIP) Negative COVID-19 Clin Com See Note 10/14/20 10/14/20 10/14/20 15:56 17:47 23:06 WBC RBC Hgb Hct MCV MCH MCHC RDW Plt Count MPV Immature Gran % (Auto) Neut % (Auto) Lymph % (Auto) [place] % (Auto) Eos % (Auto) Baso % (Auto) Lymph # (Auto) [place] # (Auto) Eos # (Auto) Baso # (Auto) Abs Immat Gran (auto) Absolute Neuts (auto) Absolute Nucleated RBC Nucleated RBC % (auto) ESR PT 14.6 H INR 1.3 H PTT (Heparin Protocol) 43.2 L 92.8 H D Sodium Potassium Chloride Carbon Dioxide Anion Gap BUN Creatinine Estim Creat Clear Calc Estimated GFR Random Glucose Calcium Total Creatine Kinase Troponin I High Sens C-Reactive Protein Triglycerides Cholesterol LDL Cholesterol, Calc HDL Cholesterol Urine Opiates Screen Not Detected Ur Barbiturates Screen Not Detected Ur Phencyclidine Scrn Not Detected Ur Amphetamines Screen Not Detected U Benzodiazepines Scrn Not Detected Urine Cocaine Screen Not Detected U Marijuana (THC) Screen Not Detected COVID-19 (PHILIP) COVID-19 Clin Com 10/15/20 10/15/20 10/15/20 05:35 05:35 05:35 WBC 10.1 RBC 4.84 Hgb 14.8 Hct 44.3 MCV 91.5 MCH 30.6 MCHC 33.4 RDW 12.1 Plt Count 332 MPV 9.9 Immature Gran % (Auto) Neut % (Auto) Lymph % (Auto) [place] % (Auto) Eos % (Auto) Baso % (Auto) Lymph # (Auto) [place] # (Auto) Eos # (Auto) Baso # (Auto) Abs Immat Gran (auto) Absolute Neuts (auto) Absolute Nucleated RBC 0.000 Nucleated RBC % (auto) 0.0 ESR PT 14.7 H INR 1.3 H PTT (Heparin Protocol) Sodium Potassium Chloride Carbon Dioxide Anion Gap BUN Creatinine Estim Creat Clear Calc Estimated GFR Random Glucose Calcium Total Creatine Kinase Troponin I High Sens C-Reactive Protein Triglycerides 212 Cholesterol 181 LDL Cholesterol, Calc 106 HDL Cholesterol 33 Urine Opiates Screen Ur Barbiturates Screen Ur Phencyclidine Scrn Ur Amphetamines Screen U Benzodiazepines Scrn Urine Cocaine Screen U Marijuana (THC) Screen COVID-19 (PHILIP) COVID-19 [facility] Com 10/15/20 10/15/20 05:35 05:35 WBC RBC Hgb Hct MCV MCH MCHC RDW Plt Count MPV Immature Gran % (Auto) Neut % (Auto) Lymph % (Auto) [place] % (Auto) Eos % (Auto) Baso % (Auto) Lymph # (Auto) [place] # (Auto) Eos # (Auto) Baso # (Auto) Abs Immat Gran (auto) Absolute Neuts (auto) Absolute Nucleated RBC Nucleated RBC % (auto) ESR PT INR PTT (Heparin Protocol) 62.7 D Sodium Potassium Chloride Carbon Dioxide Anion Gap BUN Creatinine Estim Creat Clear Calc Estimated GFR Random Glucose Calcium Total Creatine Kinase Troponin I High Sens 1105.8 H* D C-Reactive Protein Triglycerides Cholesterol LDL Cholesterol, Calc HDL Cholesterol Urine Opiates Screen Ur Barbiturates Screen Ur Phencyclidine Scrn Ur Amphetamines Screen U Benzodiazepines Scrn Urine Cocaine Screen U Marijuana (THC) Screen COVID-19 (PHILIP) COVID-19 Clin Com Discharge Plan Discharge Patient Disposition: [facility] Discharge Diagnosis: Non ST-elevation ND Referrals: [facility] [Outside] - 1 Week Vanda Ann MD [Physician] - 1 Week Discharge Medications: New atorvastatin 80 mg Tablet 80 mg PO DAILY Qty: 30 RF: 0 acetaminophen 325 mg Tablet 650 mg PO Q6H PRN (Reason: Pain, Mild (Pain Scale 1-3)) Qty: 30 RF: 0 magnesium hydroxide [Milk of Magnesia] 400 mg/5 mL Suspension 30 ml PO DAILY PRN (Reason: Constipation) Qty: 30 RF: 0 nitroglycerin [Nitrostat] 0.4 mg Tablet, Sublingual 0.4 mg sublingual Q5MX3 PRN (Reason: Chest Pain) Qty: 30 RF: 0 Nitro-Bid 2 % Ointment 0.5 inch transdermal RQ6H WHILE AWAKE Qty: 1 RF: 0 heparin (porcine) 5,000 unit/mL Solution 3,300 unit IVPUSH PROTOCOL BOLUS PRN (Reason: 40 Unit/Kg - Heparin Protocol) Qty: 1 RF: 0 heparin (porcine) 5,000 unit/mL Solution 6,500 unit IVPUSH PROTOCOL BOLUS PRN (Reason: 80 Unit/Kg - Heparin Protocol) Qty: 1 RF: 0 heparin(porcine) in 0.45% NaCl 25,000 unit/250 mL Parenteral Solution 25,000 unit continuous IV infusion .Q0M Qty: 1 RF: 0 ondansetron HCl (PF) 4 mg/2 mL Solution 4 mg IVPUSH Q8H PRN (Reason: Nausea And Vomiting) Qty: 3 RF: 0 Discontinued biotin 10,000 mcg Capsule 10,000 mcg PO DAILY RF: 0 Discharge Orders: Discharge Order (Routine); Ordered 10/15/20 Ordered By: Rox Downs Diet: low fat, low cholesterol Activity on Discharge: bed rest Stand Alone Forms: Patient Portal Discharge page Care Plan Goals: Transferred to [facility] for cardiac catheterization Health Concerns: Non ST-elevation ND need close cardiology follow-up Plan of Treatment: Close outpatient follow-up with primary care physician and Cardiology Assessment: As above
--- NOTE | 2020-10-15 12:08 | PC.NURSE ---
report called to M% RN. informed her that PTT needs to be drawn when he arrives. (therapeutic at 0600) denies CP at this time
== END 2020-10-15 12:08 | disposition short-term general hospital (02) | DRG 282 ==
LOC: HO.ED 13:53 → HO.EDOVER 15:52 → HO.IMC 16:12
PROVIDERS: Admitting Provider Hospitalist; Emergency Provider Emergency Medicine Emergency Medical Services; PCP Pediatrics; Visit Provider Hospitalist
DX: I21.4 Non-ST elevation (NSTEMI) myocardial infarction (principal); F17.210 Nicotine dependence, cigarettes, uncomplicated; Z71.6 Tobacco abuse counseling; I10 Essential (primary) hypertension; E78.00 Pure hypercholesterolemia, unspecified; Z20.822 Contact with and (suspected) exposure to COVID-19; Z88.6 Allergy status to analgesic agent; Z79.899 Other long term (current) drug therapy
CPT/HCPCS: 36415; 71045; 80048; 80061; 80307; 82550; 84484; 85025; 85027; 85610; 85652; 85730; 86140; 87635; 93005; 93306; 99285; Q9957

== ENCOUNTER → 2020-11-17 08:41 | Outpatient (BNVA) | payer OTHER, SELFPAY | PROVIDERS: PCP Pediatrics; Referring Provider Pediatrics; Visit Provider Internal Medicine | DX: I25.10 Atherosclerotic heart disease of native coronary artery without angina pectoris (principal); I21.4 Non-ST elevation (NSTEMI) myocardial infarction; Z88.8 Allergy status to other drugs, medicaments and biological substances | CPT/HCPCS: 93005 ==

== ENCOUNTER → 2020-12-18 13:56 | Outpatient (REF) | payer OTHER, SELFPAY ==
--- NOTE | 2020-12-18 13:59 | CA_ITS ---
Transthoracic Echocardiogram Patient (Last, First, Middle): Kenny Cole, Gender: Male Date of : 1990 Age: 30 Procedure Date: 12/18/2020 Procedure Type: Transthoracic Echocardiogram Location: OP Height: 172.72 cm Weight: 81.65 kg BSA: 1.95 m2 Heart Rate: bpm BP: 118 / 56 mmHg Apple Thinner: Referring MD: Donaldo Obrien MD Symptoms: I25.10 - Atherosclerotic heart disease of [place] coronary... Study Quality: Good ECG Rhythm: Sinus Conclusions: - The left ventricular systolic function is normal. The visually estimated ejection fraction is between 55-60%. - The basal inferior segment is hypokinetic. - No obvious valvular pathology seen on this study. Findings Left Ventricle Normal left ventricular cavity size. There is normal left ventricular wall thickness. The left ventricular systolic function is normal. The visually estimated ejection fraction is between 55-60%. Diastolic function is normal for age. Wall Motion Rest Echo Findings The basal inferior segment is hypokinetic. Right Ventricle Normal right ventricular cavity size and systolic function. TAPSE 1.8cm. Atria Both atria are normal in size. Aortic Valve There is a normal trileaflet aortic valve. There is no aortic valve stenosis. There is no aortic valve regurgitation. Mitral Valve The mitral valve appears normal. There is trace mitral valve regurgitation. There is no mitral valve stenosis. Pulmonic Valve The pulmonic valve was not well visualized. Tricuspid Valve Normal tricuspid valve structure. There is trace tricuspid valve regurgitation. The pulmonary artery systolic pressure is normal. Great Vessels The aortic annulus, sinuses of valsalva, and asc aorta are normal in size. Venous The inferior vena cava is normal in size and collapses greater than 50% with inspiration. Pericardium/Pleural There is no evidence of pericardial effusion. Prior Study Comparison Changes noted compared to prior study dated: 10/14/2020. Apical wall motion abnormality improved. Basal inferior abnormality previously present. Recommendations, Care & Conclusions No obvious valvular pathology seen on this study. Measurements 2D Linear Measurements IVSd: 0.98 0.6-0.9/0.6-1.0 cm LVIDd: 4.57 3.9-5.3/4.2-5.9 cm LVIDd Index: 2.34 2.4-3.2/2.2-3.1 cm/m2 LVIDs: 2.95 2.0-3.6 cm LVPWd: 1.00 0.7-1.1 cm Ao Root: 3.00 2.1-3.5 cm LA Diam: 3.20 2.7-3.8/3.0-4.0 cm LAIDs Index: 1.64 1.5-2.3 cm/m2 LV Mass: 192.72 67-162/88-224 g LV Mass Index: 98.83 43-95/49-115 g/m2 LVOT Diam: 2.10 3.0+(-)1.3 cm 2D Systolic Function EF 4C: 54.70 >55% EF 2C: 55.00 >55% EF BiP: 54.20 >55% Mitral Valve MV Pk E: 0.84 MV PK A: 0.35 MV Decel Time: 153.00 E/A: 2.40 E'Lateral: 16.90 E'Medial: 7.51 E/E' Med: 11.20 E/E' Lat: 5.00 PHT: 45.00 MVA PHT: 4.89 Decel [place]: 5.49 Aortic Valve AoV Pk Keegan: 0.95 AoV Mn Keegan: 0.66 AoV VTI: 0.27 AoV Pk Grad: 4.00 Aov Mn Grad: 2.00 MELVA Cont.VTI: 2.47 LVOT LVOT Pk Keegan: 0.84 LVOT Mn Keegan: 0.56 LVOT VTI: 0.19 LVOT Pk Grad: 3.00 LVOT Mn Grad: 1.00 LVOT Diam: 2.10 LVOT Area: 3.46 Diastolic Function MV Pk E: 0.84 MV Pk A: 0.35 E/A: 2.40 E'Medial: 7.51 E/E' Med: 11.20 E' Laterial: 16.90 E/E' Lat: 5.00 Right Ventricle TAPSE (mm): 18.00 TVS' Keegan: 7.20 Tricuspid Valve TR Pk Keegan: 2.30 TR Pk Grad: 21.00 Great Vessels Aorta Ao Root-2D: 3.00 2.0-3.7 cm Ao Asc: 3.00 2.1-3.4 cm Pulmonary Valve PV Pk Keegan: 0.98 Peak PV Grad: 4.00 Updated in Other Vendor System with Status of Final Donaldo Obrien MD electronically signed on 12/19/2020 11:43:25 AM with status of Final
== END ==
LOC: HO.CARD 13:56
PROVIDERS: PCP Pediatrics; Visit Provider Internal Medicine
DX: I21.4 Non-ST elevation (NSTEMI) myocardial infarction (principal); I25.10 Atherosclerotic heart disease of native coronary artery without angina pectoris
CPT/HCPCS: 93306

== ENCOUNTER → 2021-02-16 12:56 | Outpatient (BNVA) | payer OTHER, SELFPAY | PROVIDERS: PCP Pediatrics; Referring Provider Pediatrics; Visit Provider Internal Medicine ==

== ENCOUNTER 2021-08-03 11:06 | Outpatient (REF) | payer OTHER, SELFPAY ==
[2021-08-03 12:39] LABS: Alanine Aminotransferase 30 U/L (0-40); Albumin Level 4.6 g/dL (3.5-5.0); Alkaline Phosphatase 70 U/L (39-117); Aspartate Amino Transferase 21 U/L (5-37); Bilirubin Direct 0.2 mg/dL (0.0-0.5); Bilirubin Total 0.5 mg/dL (0.0-1.0); Cholesterol 109 mg/dL; HDL Cholesterol 40 mg/dL; LDL Cholesterol Calculated 57 mg/dl; Total Protein 7.5 g/dL (6.5-8.0); Triglycerides 64 mg/dL
[2021-08-05 14:50] LABS: CRP High Sensitivity 1.2 mg/L
[2021-08-08 07:28] LABS: Lipoprotein A 196 nmol/L (<75)
== END 2021-08-03 11:07 | disposition home or self-care (01) ==
LOC: HO.LAB 11:06
PROVIDERS: PCP Pediatrics; Referring Provider Pediatrics; Visit Provider Internal Medicine
DX: I25.10 Atherosclerotic heart disease of native coronary artery without angina pectoris (principal); I21.4 Non-ST elevation (NSTEMI) myocardial infarction; Z88.8 Allergy status to other drugs, medicaments and biological substances; Z95.1 Presence of aortocoronary bypass graft
CPT/HCPCS: 36415; 80061; 80076; 83695; 86141

== ENCOUNTER → 2022-02-02 09:00 | Outpatient (BNVA) | payer OTHER, SELFPAY | PROVIDERS: PCP Pediatrics; Referring Provider Pediatrics; Visit Provider Internal Medicine | DX: I25.10 Atherosclerotic heart disease of native coronary artery without angina pectoris (principal); R00.1 Bradycardia, unspecified; Z95.1 Presence of aortocoronary bypass graft; Z98.890 Other specified postprocedural states | CPT/HCPCS: 93005 ==

== ENCOUNTER 2023-02-15 08:58 | Outpatient (AMB) | payer OTHER, SELFPAY ==
--- NOTE | 2023-02-15 09:00 | A.OFFVIS_ITS ---
Intake Vital Signs 02/15/23 09:02 Height 5 ft 8 in Weight 199 lb 11.821 oz BMI 30.4 BP 126/90 H Blood Pressure Location Lt brachial Position Sitting Pulse 55 Intake Visit Reasons: 1 year follow up Intake Note: 1 year follow up w. EKG Supervisor Sleeping Bag Department Required: No Accompanied by: Self / Same As Patient Allergies aspirin Allergy (Verified 02/15/23 09:04) Swelling Medication List - Last Reconciled 02/15/23 by Donaldo Obrien MD atorvastatin 80 mg PO DAILY clopidogrel 75 mg PO DAILY emtricitabine-tenofovir (TDF) 200-300 mg 1 tab PO DAILY escitalopram oxalate 10 mg PO DAILY ezetimibe 10 mg PO DAILY hydroxyzine HCl 25 mg PO BEDTIME metoprolol tartrate 50 mg PO BID HPI HPI Comments History of Present Illness Details Kenny returns regarding coronary disease. In 2020, he was admitted for chest pressure and had EKG changes in the LAD territory as well as elevated troponins and wall motion findings on the echocardiogram. Cardiac catheterization showed left main as well as LAD stenosis. Following this, underwent bypass surgery and he recovered well without any new symptoms. Prior to this, had family history of premature coronary disease in father's uncle but not in the immediate next of kin. There was also history of smoking/vaping. Over the last couple of years, he has been doing good. No cardiac symptoms whatsoever. He visited [facility] for 2nd opinion and had a visit with own tower erector and a 2nd tele visit with a different tower erector and apparently there were no new changes. He is on the same medications as before. [facility] Medical History (Updated 11/17/20 @ 09:12 by Donaldo Obrien MD) Aspirin allergy Depression Anxiety Surgical History History of coronary artery bypass graft x 3 (~10/19/20) History of cardiac catheterization (~10/15/20) Family History Paternal Uncle No problems noted. Father HTN (hypertension) Mother No problems noted. Social History Household Members: Other Household Members Other:: Roommate Housing: Apartment Do you presently have visiting nurse or other home services: No Alcohol intake: current Alcohol intake frequency: a few times a week Patient Tobacco Use Status: Former Tobacco user Quit Date: 10/14/20 Years Smoked: 5 e-Cigarette/Vaping Use: Currently Using Second Hand Smoke Exposure: Yes Advance Directives Date on File: 10/14/20 service: No Current occupational status: employed Review of Systems Const Denies weakness ENT Denies dizziness Card Denies chest pain, Denies chest pain with activity, Denies syncope, Denies rapid heart rate, Denies pedal edema, Denies edema, Denies leg edema, Denies lightheadedness, Denies palpitations, Denies dyspnea, Denies dyspnea on exertion and Denies orthopnea Resp Denies cough, Denies dyspnea and Denies dyspnea on exertion GI Denies hematochezia and Denies change in stool character Musc Denies abnormal gait, Denies muscle cramps, Denies muscle weakness, Denies numbness, Denies radiating pain into limb and Denies tingling Neuro Denies abnormal gait, Denies dizziness, Denies syncope, Denies numbness, Denies tingling and Denies weakness Endo Denies palpitations Physical Exam Vital Signs: Last Vital Signs Pulse 55 02/15/23 09:02 BP 126/90 H 02/15/23 09:02 BMI result Body Mass Index 30.4 Const General: comfortable and no acute distress Orientation/consciousness: patient oriented x3 HEENT Other: Unremarkable Head: Yes normal to inspection Neck Neck: Yes normal visual inspection Chest Chest palpation & inspection: normal inspection of the chest Resp Auscultation: clear to auscultation bilaterally Cardio Palpation: normal PMI Heart sounds: S1 normal heart sound present, S2 normal heart sound present, no gallops, no murmurs and no rubs GI Palpation (GI): Soft to palpation Back/Spine/Pelvis Other: unremarkable Skin General skin exam: no rashes or lesions noted Neuro General: patient oriented x3 Extrem General: Yes normal to inspection Psych Mental Status: mental status grossly normal Office Procedures EKG Details: EKG with sinus bradycardia 55/Min; no significant ST-T changes and otherwise unremarkable[place] [id number], Complete Assessment & Plan Assessment & Plan (1) Atherosclerotic cardiovascular disease: Code(s): I25.10 - Atherosclerotic heart disease of [place] coronary artery without angina pectoris (2) Status post coronary artery bypass graft: Code(s): Z95.1 - Presence of aortocoronary bypass graft (3) Aspirin allergy: Code(s): Z88.8 - Allergy status to other drugs, medicaments and biological substances Plan Continue Plavix as he is allergic to aspirin. Continue beta-blockers, high-dose statins, Zetia. Most recent labs-LDL 43 mg/dL; triglycerides 51 mg/dL. Diastolic blood pressure is slightly high today. Advised him to do some home readings. Will request records from [facility]. Follow-up in 1 year. In the interim, call with concerns. Coding Level of Care Code Est Pt Level 3 (46876) Diagnoses Atherosclerotic cardiovascular disease I25.10 Status post coronary artery bypass graft Z95.1 Aspirin allergy Z88.8 CPT Codes EKG - CPT: 61530-[id number], Complete ([id number])
[2023-02-15 09:02] VITALS: BP 126/90; PULSE 55; BMI 30.4
== END 2023-02-15 09:24 | disposition home or self-care (01) ==
PROVIDERS: Visit Provider Internal Medicine
DX: I25.10 Atherosclerotic heart disease of native coronary artery without angina pectoris (principal); Z95.1 Presence of aortocoronary bypass graft; Z88.8 Allergy status to other drugs, medicaments and biological substances
CPT/HCPCS: 93010; 99213

== ENCOUNTER → 2023-02-15 08:58 | Outpatient (BNVA) | payer OTHER, SELFPAY | PROVIDERS: Visit Provider Internal Medicine | DX: Z95.1 Presence of aortocoronary bypass graft (principal); Z88.8 Allergy status to other drugs, medicaments and biological substances | CPT/HCPCS: 93005 ==

== ENCOUNTER 2024-02-06 10:34 | Outpatient (AMB) | payer OTHER, SELFPAY ==
[2024-02-06 10:36] VITALS: BP 120/60; PULSE 53
--- NOTE | 2024-02-06 10:36 | MHC.OFFVIS ---
Vital Signs 02/06/24 10:36 Height 5 ft 8 in BMI Reason not done Patient refused/unable BP 120/60 Blood Pressure Location Lt brachial Position Sitting Pulse 53 Pulse Source Monitor Intake Visit Reasons: 1 yr f/up Allergies aspirin Allergy (Verified 02/15/23 09:04) Swelling Medication List - Last Reconciled 02/06/24 by Donaldo Obrien MD atorvastatin 80 mg PO DAILY clopidogrel 75 mg PO DAILY emtricitabine-tenofovir (TDF) 200-300 mg 1 tab PO DAILY escitalopram oxalate 10 mg PO DAILY ezetimibe 10 mg PO DAILY metoprolol tartrate 50 mg PO BID 90 days HPI Comments Details: Kenny returns regarding coronary disease. In 2020, he was admitted for chest pressure and had EKG changes in the LAD territory as well as elevated troponins and wall motion findings on the echocardiogram. Cardiac catheterization showed left main as well as LAD stenosis. Following this, underwent bypass surgery and he recovered well without any new symptoms. Prior to this, had family history of premature coronary disease in father's uncle but not in the immediate next of kin. There was also history of smoking/vaping. Post bypass, he is generally doing good. No complaints like angina or shortness of breath or in fact anything cardiac sounding. He also visited [facility] for 2nd opinion and a 2nd tele visit with a different therapist physical and apparently there were no new changes. He is on the same medications as before. Since last seen, no new issues. [facility] Medical History (Updated 11/17/20 @ 09:12 by Donaldo Obrien MD) Aspirin allergy Depression Anxiety Surgical History History of coronary artery bypass graft x 3 (~10/19/20) History of cardiac catheterization (~10/15/20) Family History Paternal Uncle No problems noted. Father HTN (hypertension) Mother No problems noted. Social History Household Members: Other Household Members Other:: Roommate Housing: Apartment Do you presently have visiting nurse or other home services: No Alcohol intake: current Alcohol intake frequency: a few times a week Patient Tobacco Use Status: Former Tobacco user Years Smoked: 5 e-Cigarette/Vaping Use: Currently Using Second Hand Smoke Exposure: Yes Advance Directives Date on File: 10/14/20 service: No Current occupational status: employed Review of Systems Const Denies weakness ENT Denies dizziness Card Denies chest pain, Denies chest pain with activity, Denies syncope, Denies rapid heart rate, Denies pedal edema, Denies edema, Denies leg edema, Denies lightheadedness, Denies palpitations, Denies dyspnea, Denies dyspnea on exertion and Denies orthopnea Resp Denies cough, Denies dyspnea and Denies dyspnea on exertion GI Denies hematochezia and Denies change in stool character Musc Denies abnormal gait, Denies muscle cramps, Denies muscle weakness, Denies numbness, Denies radiating pain into limb and Denies tingling Neuro Denies abnormal gait, Denies dizziness, Denies syncope, Denies numbness, Denies tingling and Denies weakness Endo Denies palpitations Physical Exam Vital Signs: Last Vital Signs Pulse 53 02/06/24 10:36 BP 120/60 02/06/24 10:36 Const General: comfortable and no acute distress Orientation/consciousness: patient oriented x3 HEENT Other: Unremarkable Head: Yes normal to inspection Neck Neck: Yes normal visual inspection Chest Chest palpation & inspection: normal inspection of the chest Resp Auscultation: clear to auscultation bilaterally Cardio Palpation: normal PMI Heart sounds: S1 normal heart sound present, S2 normal heart sound present, no gallops, no murmurs and no rubs GI Palpation (GI): Soft to palpation Back/Spine/Pelvis Other: unremarkable Skin General skin exam: no rashes or lesions noted Neuro General: patient oriented x3 Extrem General: Yes normal to inspection Psych Mental Status: mental status grossly normal Office Procedures EKG Details: EKG with underlying sinus bradycardia at 53/Min; subtle T inversion in lead 1/aVL and seen before; [place]. [id number], Complete Assessment & Plan Assessment & Plan (1) Atherosclerotic cardiovascular disease: Code(s): I25.10 - Atherosclerotic heart disease of [place] coronary artery without angina pectoris Category: Medical (2) Status post coronary artery bypass graft: Code(s): Z95.1 - Presence of aortocoronary bypass graft Category: Surgical (3) Aspirin allergy: Code(s): Z88.8 - Allergy status to other drugs, medicaments and biological substances Category: Medical Plan Overall, remains stable post bypass surgery. Continue Plavix as he is allergic to aspirin. Continue beta-blockers, statins, Zetia. Last cholesterol levels from 2022-LDL 43 mg/dL; triglycerides 51 mg/dL. Blood pressure seems stable. We will plan on exercise stress perfusion imaging study about 5 years from time of bypass. If any interim concerns, advised to contact us. We will see him back in 1 year. Coding Level of Care Code Est Pt Level 3 (66979) Diagnoses Atherosclerotic cardiovascular disease I25.10 Status post coronary artery bypass graft Z95.1 Aspirin allergy Z88.8 CPT Codes EKG - CPT: 04923-[id number], Complete ([id number])
== END 2024-02-06 11:10 | disposition home or self-care (01) ==
PROVIDERS: PCP Pediatrics; Visit Provider Internal Medicine
DX: I25.10 Atherosclerotic heart disease of native coronary artery without angina pectoris (principal); Z95.1 Presence of aortocoronary bypass graft; Z88.8 Allergy status to other drugs, medicaments and biological substances
CPT/HCPCS: 93010; 99213

== ENCOUNTER → 2024-02-06 10:34 | Outpatient (BNVA) | payer OTHER, SELFPAY | PROVIDERS: PCP Pediatrics; Visit Provider Internal Medicine | DX: I25.10 Atherosclerotic heart disease of native coronary artery without angina pectoris (principal); Z95.1 Presence of aortocoronary bypass graft; Z79.02 Long term (current) use of antithrombotics/antiplatelets; Z79.899 Other long term (current) drug therapy; Z88.8 Allergy status to other drugs, medicaments and biological substances | CPT/HCPCS: 93005 ==

== ENCOUNTER 2025-02-10 08:46 | Outpatient (AMB) | payer OTHER, SELFPAY ==
[2025-02-10 08:58] VITALS: BP 120/62; PULSE 62; BMI 28.8
--- NOTE | 2025-02-10 08:58 | MHC.OFFVIS ---
Vital Signs 02/10/25 08:58 Height 5 ft 8 in Weight 189 lb 9.561 oz BMI 28.8 BP 120/62 Blood Pressure Location Lt brachial Position Sitting Pulse 62 Pulse Source Monitor Intake Visit Reasons: 1 yr follow up Allergies aspirin Allergy (Verified 02/15/23 09:04) Swelling Medication List - Last Reconciled 02/10/25 by Donaldo Obrien MD atorvastatin 80 mg PO DAILY clopidogrel 75 mg PO DAILY emtricitabine-tenofovir (TDF) 200-300 mg 1 tab PO DAILY escitalopram oxalate 20 mg PO DAILY ezetimibe 10 mg PO DAILY metoprolol tartrate 50 mg PO BID HPI Comments Details: Kenny returns regarding coronary disease. In 2020, he was admitted for chest pressure and had EKG changes in the LAD territory as well as elevated troponins and wall motion findings on the echocardiogram. Cardiac catheterization showed left main as well as LAD stenosis. Following this, underwent bypass surgery and he recovered well without any new symptoms. Prior to this, had family history of premature coronary disease in father's uncle but not in the immediate next of kin. There was also history of smoking/vaping. Over the last few years, he has been doing fairly well. No new concerns. No angina or in fact any other issues. Compliant with all medications. [facility] Medical History (Updated 11/17/20 @ 09:12 by Donaldo Obrien MD) Aspirin allergy Depression Anxiety Surgical History History of coronary artery bypass graft x 3 (~10/19/20) History of cardiac catheterization (~10/15/20) Family History Paternal Uncle No problems noted. Father HTN (hypertension) Mother No problems noted. Social History Household Members: Other Household Members Other:: Roommate Housing: Apartment Do you presently have visiting nurse or other home services: No Alcohol intake: current Alcohol intake frequency: a few times a week Patient Tobacco Use Status: Former Tobacco user Years Smoked: 5 e-Cigarette/Vaping Use: Currently Using Second Hand Smoke Exposure: Yes Advance Directives Date on File: 10/14/20 service: No Current occupational status: employed Review of Systems Const Denies weakness ENT Denies dizziness Card Denies chest pain, Denies chest pain with activity, Denies syncope, Denies rapid heart rate, Denies pedal edema, Denies edema, Denies leg edema, Denies lightheadedness, Denies palpitations, Denies dyspnea, Denies dyspnea on exertion and Denies orthopnea Resp Denies cough, Denies dyspnea and Denies dyspnea on exertion GI Denies hematochezia and Denies change in stool character Musc Denies abnormal gait, Denies muscle cramps, Denies muscle weakness, Denies numbness, Denies radiating pain into limb and Denies tingling Neuro Denies abnormal gait, Denies dizziness, Denies syncope, Denies numbness, Denies tingling and Denies weakness Endo Denies palpitations Physical Exam Vital Signs: Last Vital Signs Pulse 62 02/10/25 08:58 BP 120/62 02/10/25 08:58 BMI result Body Mass Index 28.8 Const General: comfortable and no acute distress Orientation/consciousness: patient oriented x3 HEENT Other: Unremarkable Head: Yes normal to inspection Neck Neck: Yes normal visual inspection Chest Chest palpation & inspection: normal inspection of the chest Resp Auscultation: clear to auscultation bilaterally Cardio Palpation: normal PMI Heart sounds: S1 normal heart sound present, S2 normal heart sound present, no gallops, no murmurs and no rubs GI Palpation (GI): Soft to palpation Back/Spine/Pelvis Other: unremarkable Skin General skin exam: no rashes or lesions noted Neuro General: patient oriented x3 Extrem General: Yes normal to inspection Psych Mental Status: mental status grossly normal Office Procedures EKG Details: EKG with underlying sinus rhythm at 62/Min; no ischemic changes; [place] [id number], Complete Assessment & Plan Assessment & Plan (1) Atherosclerotic cardiovascular disease: Code(s): I25.10 - Atherosclerotic heart disease of [place] coronary artery without angina pectoris Category: Medical (2) Status post coronary artery bypass graft: Code(s): Z95.1 - Presence of aortocoronary bypass graft Category: Surgical (3) Aspirin allergy: Code(s): Z88.8 - Allergy status to other drugs, medicaments and biological substances Category: Medical Plan Overall, remains stable post bypass surgery. Continue Plavix as he is allergic to aspirin. Continue beta-blockers, statins, Zetia. Last cholesterol levels from 2022-LDL 43 mg/dL; triglycerides 51 mg/dL. We will request the more recent levels from [facility]. If not available, consider repeating. Blood pressure seems stable. We will plan on cardiac workup about 5 years from the time of coronary bypass, considering very premature coronary disease. Plan to follow up in one year. Otherwise, he will call us with any concerns. Discussion Notes I discussed with the patient that it has been four years since the cardiac catheterization and that the patient is doing well. I advised a follow-up visit in one year, at which point it will be approximately five years post-procedure. I informed the patient of the plan to order a heart ultrasound and a stress test to be performed before the next annual visit. I also explained that I would try to obtain recent cholesterol results from [facility], and if unavailable, a new lab order would be placed. Patient was informed and verbally consented to the use of an ambient scribe for clinic note documentation during this visit. Orders: Orders CA echo transthoracic complete 1 Year I25.10 - Atherosclerotic heart disease of [place] coronary artery without angina pectoris, Z95.1 - Presence of aortocoronary bypass graft CA stress test 1 Year Z95.1 - Presence of aortocoronary bypass graft [place] cardiolite stress test 1 Year Z95.1 - Presence of aortocoronary bypass graft Patient Instructions: - You are doing well. Please continue your current activities as tolerated. - Please schedule a follow-up appointment with our office in one year. - We will place an order for a heart ultrasound (echocardiogram) and a stress test. Please complete these tests before your next visit. - We will try to get your recent cholesterol results. If we cannot find them, we will send you a new order for blood work. Coding Level of Care Code Est Pt Level 4 (64113) Complex visit Add On G2211 Diagnoses Atherosclerotic cardiovascular disease I25.10 Status post coronary artery bypass graft Z95.1 Aspirin allergy Z88.8 CPT Codes EKG - CPT: 98395-[id number], Complete ([id number])
--- OUTSIDE RECORDS SUMMARY | 2025-02-10 09:14 | XMS_ITS | Clinical Summary ---
Author Organization [facility] Address [address] [address] Phone Care Team Providers Care Manager Transition Name Role Phone Vanda Ann MD Primary Care Provider + Allergies No known active allergies Medications ezetimibe (ZETIA) 10 mg tabletIndication s:Hypercholester olemia Take 1 tablet (10 mg total) by mouth daily. 90 tablet 5 02/17/2024 Active Active Problems No known active problems Social History Tobacco Use Types Packs/Day Years Used Date Smoking Tobacco: Never Assessed Education Answer Date Recorded Are you interested in more education? Not on danilo e 07/15/2022 Are you concerned about learning? Not on file 07/15/2022 No 07/15/2022 No 07/15/2022 Digital Access Answer Date Recorded No 08/12/2022 No 08/12/2022 Reliable internet access at home? Not on file 08/12/2022 Device with a working camera? Not on file Sex and Gender Information Value Date Recorded Sex Assigned at Male 02/14/2022 1:41 PM EST Legal Sex Male 9:00 PM EDT Gender Identity Male 02/14/2022 1:41 PM EST Sexual Orientation Lesbian or [place] 02/14/2022 1: 41 PM EST Plan of Treatment Health Maintenance Due Date Last Done Comments DEPRESSION SCREENING 2003 SMOKING Hx and SMOKELESS TOBACCO SCREENING 06/06/2004 HEPATITIS C SCREENING 06/06/2009 HIV ONE-TIME SCREENING (18-65 YEARS) 06/06/2009 INFLUENZA VACCINE (#1) 2024 , 02/06/2019, 02/01/2018, Additional history exists COVID-19 VACCINE ( season) 2024 01/20/2021, 07/07/2020, 06/15/2020 Adult Td,Tdap Booster 04/30/2025 04/30/2015, 004 HIB VACCINES Completed 09/03/1992, 08/18[birth year] 1991, Additional history exists MENINGOCOCCAL VACCINES (ACWY) Aged Out 12/11/2006 No longer eligible based on patient's age to complete this topic HEPATITIS A VACCINES Completed 02/02/2012, 12/22/19 10 MENINGOCOCCAL VACCINES (B) Aged Out N o longer eligible based on patient's age to complete this topic PNEUMOCOCCAL VACCINES (0-49 years) Aged Out No longer eligible based on patient's age to complete this topic Medical Devices Not on file Insurance GENERIC COMMERCIAL GENERIC COMMERCIAL GENERIC COMMERCIAL GENERIC COMMERCIAL GENERIC COMMERCIAL GENERIC COMMERCIAL GENERIC COMMERCIAL GENERIC COMMERCIAL GENERIC COMMERCIAL Care Teams Manager Transition Relationship Specialty Start Date End Date Vanda Ann MD [address] [place] [address] PCP - General Pediatrics 08/03/21 Additional Source Comments The information contained in this document represents components of the legal health record. It is not the complete legal health record.[facility]
== END 2025-02-10 09:16 | disposition home or self-care (01) ==
LOC: HO.HCS 08:47
PROVIDERS: Visit Provider Internal Medicine
DX: I25.10 Atherosclerotic heart disease of native coronary artery without angina pectoris (principal); Z95.1 Presence of aortocoronary bypass graft; Z88.8 Allergy status to other drugs, medicaments and biological substances
CPT/HCPCS: 93010; 99214; G2211

== ENCOUNTER → 2025-02-10 08:46 | Outpatient (BNVA) | payer OTHER, SELFPAY | PROVIDERS: Visit Provider Internal Medicine | DX: I25.10 Atherosclerotic heart disease of native coronary artery without angina pectoris (principal); Z95.1 Presence of aortocoronary bypass graft | CPT/HCPCS: 93005 ==